=== PATIENT | female | born 1990 | race African-American/Black ===

== ENCOUNTER 2020-09-14 16:11 | Emergency (ER) | payer MEDICAID ==
[~2020-09-14] VITALS: Ht 167.6 cm; Wt 90.0 kg
[2020-09-14] MEDS ORDERED: HYDROCODONE/ACETAMINOPHEN 5/325MG TABLET PO ONE ×2 (17:15→19:45)
[2020-09-14] MEDS ORDERED: IBUPROFEN 600MG TABLET PO ONE (17:15)
[2020-09-14] MEDS ORDERED: NAPR-681 MT (19:13)
[2020-09-14 19:48] VITALS: BP 115/77
== END 2020-09-14 20:15 | disposition home or self-care (01) ==
LOC: ER 16:11
DX: S82.431A Displaced oblique fracture of shaft of right fibula, initial encounter for closed fracture (principal); Z79.899 Other long term (current) drug therapy; X50.1XXA Overexertion from prolonged static or awkward postures, initial encounter; Y93.89 Activity, other specified; Y92.89 Other specified places as the place of occurrence of the external cause; Y99.8 Other external cause status
CPT/HCPCS: 29515; 73610; 73630; 99284

== ENCOUNTER 2021-02-24 08:42 | Emergency (ER) | payer MEDICAID ==
[~2021-02-24] VITALS: Ht 172.7 cm; Wt 91.0 kg
[~2021-02-24 08:42] MED LIST: NAPR-681 MT
[2021-02-24] MEDS ORDERED: METOCLOPRAMIDE HCL 10MG/2ML VIAL IV ONE (10:15)
[2021-02-24] MEDS ORDERED: SODIUM CHLORIDE 0.9% 1,000 ML IV ONE (10:15)
[2021-02-24 13:01] LABS: UCG SCREEN NEGATIVE
[2021-02-24 14:48] VITALS: BP 125/67
== END 2021-02-24 15:20 | disposition home or self-care (01) ==
LOC: ER 08:42
DX: R11.2 Nausea with vomiting, unspecified (principal); F17.200 Nicotine dependence, unspecified, uncomplicated
CPT/HCPCS: 81025; 96374; 99283; J2765; J7030

== ENCOUNTER 2021-10-05 20:40 | Emergency (ER) | payer MEDICAID ==
[~2021-10-05] VITALS: Ht 170.2 cm; Wt 107.8 kg
[2021-10-05] MEDS ORDERED: BACITRACIN ZINC OINT UDPKT TOP ONE (22:30)
[2021-10-05] MEDS ORDERED: LIDOCAINE HCL/PF 1% 10 MG/ML 5ML VIAL INFIL ONE (22:30)
[2021-10-05] MEDS ORDERED: HYDROCODONE/ACETAMINOPHEN 5/325MG TABLET PO ONE (22:30)
[2021-10-05] MEDS ORDERED: CEPHALEXIN 250MG CAPSULE PO ONE (22:45)
[2021-10-05 23:02] VITALS: BP 135/69
[2021-10-05] MEDS ORDERED: LIDOCAINE HCL 1% 10 MG/ML 10ML VIAL INJ NR (23:15)
[2021-10-05] MEDS ORDERED: CEPH500T MT (23:24)
[2021-10-05] MEDS ORDERED: T3 PO (23:24)
[2021-10-05] MEDS ORDERED: IBUP-2030 MT (23:24)
== END 2021-10-05 22:32 | disposition home or self-care (01) ==
LOC: ER 20:40
DX: S62.396B Other fracture of fifth metacarpal bone, right hand, initial encounter for open fracture (principal); W23.0XXA Caught, crushed, jammed, or pinched between moving objects, initial encounter; Y93.89 Activity, other specified; Y92.89 Other specified places as the place of occurrence of the external cause; Y99.0 Civilian activity done for income or pay
CPT/HCPCS: 29130; 73140; 99284; J3490

== ENCOUNTER 2022-10-11 16:34 | Emergency (ER) | payer MEDICAID ==
[~2022-10-11] VITALS: Ht 167.6 cm; Wt 90.0 kg
[~2022-10-11 16:34] MED LIST changes: +CEPH500T MT; +IBUP-2030 MT; +T3 PO
[2022-10-11 16:53] VITALS: BP 122/43
[2022-10-11 17:50] LABS: BASOPHILS % 0.4 % (0.0-2.0); HEMATOCRIT. 40.7 % (36.0-48.0); LYMPHOCYTES % 14.7 % (20.0-50.0); MEAN CORPUSCULAR HEMOGLOBIN 30.3 pg (28.0-32.0); MEAN CORPUSCULAR VOLUME 88.2 fL (81.0-99.0); MEAN PLATELET VOLUME 8.1 fl (7.4-10.4); MONOCYTES % 5.1 % (2.0-8.0); NEUTROPHILS % 79.8 % (40.0-76.0); PLATELET 289 x1000/uL (130-400); RED BLOOD CELL COUNT 4.62 mill/uL (4.2-5.4); RED CELL DISTRIBUTION WIDTH 13.4 % (11.6-14.6)
[2022-10-11 18:01] LABS: CHLORIDE 105 mEq/L (98-107)
== END 2022-10-11 20:45 | disposition home or self-care (01) ==
LOC: ER 16:34
DX: R11.2 Nausea with vomiting, unspecified (principal); F12.10 Cannabis abuse, uncomplicated
CPT/HCPCS: 36415; 80053; 85025; 99283